=== PATIENT | male | born 1940 | race Caucasian/White ===

== ENCOUNTER → 2018-06-18 09:17 | Outpatient (CLI) | payer MEDICARE, OTHER, SELFPAY ==
[2018-05-21 13:16] VITALS: BP 116/64; PULSE 77; RESP 16; TEMP 36.5; O2SAT 98; BMI 27.1
--- NOTE | 2018-05-21 13:35 | SDCEKG_ITS ---
Test Reason : Blood Pressure : / mmHG Vent. Rate : 067 BPM Atrial Rate : 067 BPM P-R Int : 174 ms QRS Dur : 084 ms QT Int : 372 ms P-R-T Axes : 046 055 033 degrees QTc Int : 393 ms Sinus rhythm with Premature atrial complexes Otherwise normal ECG Confirmed by [place] WALLACE, JOHNNA ([id number]), editor in chief newspaper MARISABEL MCLAUGHLIN ([id number]) on 05/25/2018 4:47:52 PM Referred By: Khanh Avila Confirmed By:JOHNNA HOUGH MD
[2018-05-21 14:28] LABS: Anion Gap 9 (5-15); BUN 21 mg/dL (7-18); BUN/Creat Ratio 18.3 RATIO (10-20); Calcium,Total 8.9 mg/dL (8.5-10.1); Chloride 105 mmol/L (98-107); Creatinine, Serum 1.15 mg/dL (0.70-1.30); EST Glomerular Filtration Rate 66 mL/min (>60); Est Glom Filt Rate - Afr Amer 79 mL/min (>60); Estimated Creatinine Clearance 48.54 ml/min; Glucose 104 mg/dL (74-106); Potassium 4.1 mmol/L (3.5-5.1); Sodium Level 137 mmol/L (136-145)
== END ==
PROVIDERS: Anesthesiology; Family Provider Preventive Medicine Occupational Medicine; PCP Preventive Medicine Occupational Medicine; Referring Provider Urology; Visit Provider Urology
DX: Z01.818 Encounter for other preprocedural examination (principal)
CPT/HCPCS: 80048; 93005